=== PATIENT | male | born 1970 | race Two or more races ===

== ENCOUNTER 2020-05-10 20:07 | Emergency (ER) | payer MEDICAID, OTHER ==
[~2020-05-10] VITALS: Ht 177.8 cm; Wt 124.7 kg
[2020-05-11] MEDS ORDERED: TETANUS-DIPTH-ACEL PERTUSSIS 0.5ML SYR Tdap IM ONE (01:45)
[2020-05-11] MEDS ORDERED: BACITRACIN TOP OINT 1 UD PKG TOP ONE (01:45)
[2020-05-11] MEDS ORDERED: LIDOCAINE 1% HCL (LOCAL ANESTH.) INJ 20ML MDV ID ONE (01:45)
[2020-05-11] MEDS ORDERED: HYDROcodone-ACET 10/325MG TAB PO ONE (02:00)
[2020-05-11 02:40] VITALS: BP 147/91
[2020-05-11] MEDS ORDERED: cefTRIAXone SOD 1,000 MG VL IM ONE (02:45)
== END 2020-05-11 03:05 | disposition home or self-care (01) ==
LOC: ER 20:10
DX: S62.613A Displaced fracture of proximal phalanx of left middle finger, initial encounter for closed fracture (principal); W23.0XXA Caught, crushed, jammed, or pinched between moving objects, initial encounter; Y93.89 Activity, other specified; Y92.89 Other specified places as the place of occurrence of the external cause; Y99.8 Other external cause status
CPT/HCPCS: 12001; 29130; 73120; 96372; 99283; J0696; J2001